=== PATIENT | male | born 1980 | race Caucasian/White ===

== ENCOUNTER 2021-05-06 15:22 | Emergency (ER) | payer BC ==
[2021-05-06 15:51] LABS: BASO # 0.05 K/mm3 (0.02-0.10); EOS # 0.11 K/mm3 (0.04-0.40); EOS % 0.9 % (0.0-4.0); HEMATOCRIT 43.2 % (42.0-52.0); HEMOGLOBIN 14.8 g/dL (13.5-18.0); LYMPH# 2.96 K/mm3 (1.50-4.00); MEAN CELL VOLUME 86 fl (78-100); MEAN CORPUSCULAR HEMOGLOBIN 30 pg (27-31); MEAN CORPUSCULAR HGB CONC 34 g/dL (33-37); MEAN PLATELET VOLUME 10.8 fl (7.4-10.4); MONO # 0.77 K/mm3 (0.20-0.80); NEU # 8.15 K/mm3 (1.40-6.50); PLATELET COUNT 251 K/mm3 (130-400); RED CELL DISTRIBUTION WIDTH 12.6 % (11.5-14.5); WHITE BLOOD COUNT 12.1 K/mm3 (4.8-10.8)
[2021-05-06 16:04] LABS: ALBUMIN 4.2 g/dL (3.5-5.0); SODIUM 141 mmol/L (136-145)
[2021-05-06 16:06] LABS: GLUCOSE 92 mg/dL (75-110); TOTAL PROTEIN 7.4 g/dL (6.4-8.3)
[2021-05-06 16:08] LABS: CARBON DIOXIDE 20 mmol/L (22-29)
[2021-05-06 16:11] LABS: D-DIMER 0.75 mg/L FEU (0.15-0.50)
[2021-05-06 16:12] LABS: AST-SGOT 18 U/L (5-34)
[2021-05-06 16:13] LABS: ALT/SGPT 27 U/L (0-55)
[2021-05-06 16:19] LABS: TROPONIN-I < 0.030 ng/mL (<0.030)
[2021-05-06 16:31] LABS: TOTAL BILIRUBIN 0.6 mg/dL (0.2-1.2)
[2021-05-06 16:59] LABS: ERYTHROCYTE SEDIMENTATION RATE 42 mm/hr (0-15)
[2021-05-06] MEDS ORDERED: DULOXETINE30 MG PO (17:21)
[2021-05-06] MEDS ORDERED: BUSPIRONE HYDRO10 MG PO (17:21)
[2021-05-06] MEDS ORDERED: DESYREL DIVIDO150 M1 PO (17:21)
[2021-05-06] MEDS ORDERED: PROPRANOLOL HCL20 M2 PO (17:21)
[2021-05-06] MEDS ORDERED: LIOTHYRONINE S25 MC1 PO (17:22)
[2021-05-06] MEDS ORDERED: PREDNISONE20 MG PO (17:51)
[2021-05-06] MEDS ORDERED: ZITHROMAX Z PA250 MG PO (17:51)
[2021-05-06 18:27] VITALS: BP 149/94
== END 2021-05-06 17:58 | disposition home or self-care (01) ==
LOC: ED 15:22
PROVIDERS: Physician Assistant
DX: J40 Bronchitis, not specified as acute or chronic (principal); U09.9 Post COVID-19 condition, unspecified; D72.829 Elevated white blood cell count, unspecified; R91.8 Other nonspecific abnormal finding of lung field; F41.9 Anxiety disorder, unspecified; F32.A Depression, unspecified; Z79.899 Other long term (current) drug therapy
CPT/HCPCS: Q9967

== ENCOUNTER 2024-01-30 08:00 | Outpatient (RCR) | payer BC ==
[~2024-01-30 08:00] MED LIST: BUSPIRONE HYDRO10 MG PO; DESYREL DIVIDO150 M1 PO; DULOXETINE30 MG PO; LIOTHYRONINE S25 MC1 PO; PREDNISONE20 MG PO; PROPRANOLOL HCL20 M2 PO; ZITHROMAX Z PA250 MG PO
== END 2024-02-18 ==
LOC: PT
DX: S82.121D Displaced fracture of lateral condyle of right tibia, subsequent encounter for closed fracture with routine healing (principal); X58.XXXD Exposure to other specified factors, subsequent encounter